=== PATIENT | female | born 1980 | race Caucasian/White ===

== ENCOUNTER 2018-09-29 15:33 | Outpatient (CLI) | payer OTHER | END 2018-09-29 15:34 | disposition home or self-care (01) | LOC: LAB 15:33 | PROVIDERS: ATTEND Internal Medicine | DX: R76.11 Nonspecific reaction to tuberculin skin test without active tuberculosis (principal) | CPT/HCPCS: 36415; 81599; 86480 ==

== ENCOUNTER 2019-02-23 15:57 | Outpatient (CLI) | payer OTHER ==
[2019-02-23 15:40] LABS: EOSINOPHILS # (AUTO) 0.2 10^3/uL (0.0-0.7); EOSINOPHILS % (AUTO) 4.1 %; HGB - HEMOGLOBIN 13.3 g/dL (12.0-16.0); LYMPHOCYTES # (AUTO) 1.1 10^3/uL (1.5-3.5); LYMPHOCYTES % (AUTO) 27.5 %; MEAN CORPUSCULAR HEMOGLOBIN 31.5 pg (27.0-31.0); MEAN CORPUSCULAR HGB CONC 33.1 g/dL (32.0-36.0); MEAN CORPUSCULAR VOLUME 95.3 fL (81.0-99.0); MEAN PLATELET VOLUME 9.9 fL (7.9-10.8); MONOCYTES # (AUTO) 0.4 10^3/uL (0.0-1.0); MONOCYTES % (AUTO) 8.8 %; NEUTROPHILS # (AUTO) 2.4 10^3/uL (1.5-6.6); NEUTROPHILS % (AUTO) 58.6 %; PLT - PLATELET COUNT 202 10^3/uL (130-450); RED BLOOD COUNT 4.22 10^6/uL (4.20-5.40); RED CELL DISTRIBUTION WIDTH 12.7 % (12.0-15.0); WHITE BLOOD COUNT 4.1 x10^3/uL (4.8-10.8)
[2019-02-23 15:48] LABS: CALCIUM 9.3 mg/dL (8.5-10.3); CREATININE 0.8 mg/dL (0.4-1.0)
[2019-02-23] MEDS ORDERED: IOVERSOL 320 50 ML VIAL ONE (16:06)
[2019-02-23] MEDS ORDERED: IOVERSOL 320 100 ML VIAL IVP ONE ×2 (16:07→17:01)
[2019-02-23] MEDS ORDERED: IOVERSOL 320 50 ML VIAL PO ONE (17:01)
--- NOTE | 2019-02-23 17:51 | CT Report ---
Reason: RLQ PAIN Procedure Date: 02/23/2019 Accession Number: [id number] / [id number] Procedure: CT - Abdomen/Pelvis W CPT Code: FULL RESULT: EXAM: CT ABDOMEN AND PELVIS EXAM DATE: 02/23/2019 05:11 PM. CLINICAL HISTORY: RLQ PAIN. COMPARISONS: None. TECHNIQUE: Routine helical CT imaging was performed through the abdomen and pelvis. IV contrast: 90 cc Optiray 320. Enteric contrast: No. Reconstructions: Coronal and sagittal. In accordance with CT protocol optimization, one or more of the following dose reduction techniques were utilized for this exam: automated exposure control, adjustment of mA and/or KV based on patient size, or use of iterative reconstructive technique. FINDINGS: ABDOMEN: Lung Bases: Incompletely included lower lungs are grossly clear. Heart size is within normal limits. No basilar effusions. Liver: Unremarkable. Spleen: Unremarkable. Pancreas: Unremarkable. Gallbladder/Bile Ducts: Gallbladder is unremarkable. Biliary tree is normal caliber. Adrenal Glands: Unremarkable. Kidneys: No mass, calculi, or hydronephrosis. Peritoneum/Mesentery/Bowel: No free fluid, free air, or collection. No intestinal obstruction or inflammation. Appendix not definitively identified. No evidence for appendicitis. Lymph nodes: No mesenteric, periportal, or retroperitoneal lymphadenopathy. Vasculature: Abdominal aorta is nonaneurysmal. Portal vein is patent. Hepatic veins are patent. PELVIS: The bladder is unremarkable for the degree of distention. Uterus is present. No obvious abnormally enlarged adnexal abnormalities. No pelvic lymphadenopathy. Bones: No suspicious osseous lesions. IMPRESSION: No acute abnormalities. [facility] The call report notification system was initiated by Dr. Yash Mercado at 05:49 PM on 02/23/2019.
== END 2019-02-23 15:58 | disposition home or self-care (01) ==
LOC: DI 15:57
PROVIDERS: ATTEND Surgery
DX: R10.31 Right lower quadrant pain (principal)
CPT/HCPCS: 36415; 74177; 80048; 85025; Q9967

== ENCOUNTER 2019-09-10 14:21 | Outpatient (CLI) | payer OTHER | END 2019-09-10 14:22 | disposition home or self-care (01) | LOC: LAB 14:21 | PROVIDERS: ATTEND Internal Medicine | DX: R76.11 Nonspecific reaction to tuberculin skin test without active tuberculosis (principal) | CPT/HCPCS: 36415; 81599; 86480 ==

== ENCOUNTER 2021-08-03 08:00 | Outpatient (CLI) | payer OTHER ==
[2021-08-03 15:58] LABS: BILIRUBIN,URINE NEGATIVE (NEGATIVE); GLUCOSE, URINE (UA) NEGATIVE (NEGATIVE); KETONES,URINE (UA) NEGATIVE (NEGATIVE); LEUKOCYTE ESTERASE, URINE NEGATIVE (NEGATIVE); NITRITE,URINE NEGATIVE (NEGATIVE); OCCULT BLOOD,URINE NEGATIVE (NEGATIVE); PH,URINE 6.5 PH (5.0-7.5); PROTEIN,URINE NEGATIVE (NEGATIVE); UROBILINOGEN,URINE 0.2 (NORMAL) E.U./dL (NORMAL)
[2021-08-03 16:05] LABS: CLARITY,URINE CLEAR (CLEAR)
== END 2021-08-03 23:59 | disposition home or self-care (01) ==
LOC: LAB 08:00
PROVIDERS: ATTEND Internal Medicine
DX: R39.9 Unspecified symptoms and signs involving the genitourinary system (principal)
CPT/HCPCS: 81001; 81003; 87086

== ENCOUNTER 2021-10-03 14:36 | Outpatient (CLI) | payer OTHER ==
--- NOTE | 2021-10-03 15:44 | Ultrasound Report ---
PROCEDURE: Abdomen Limited INDICATIONS: RUQ PAIN TECHNIQUE: Real-time focused scanning was performed of the abdomen, with image documentation. COMPARISON: 02/23/2019 CT abdomen and pelvis FINDINGS: Normal size of the liver. Normal hepatic parenchymal echogenicity and echotexture. No foca l hepatic mass. No intrahepatic or extrahepatic biliary ductal dilatation. The common duct measures a pproximately 3 mm at the melo hepatis. Normally distended gallbladder with no wall thickening or per icholecystic fluid. No sludge or gallstones demonstrated. Visualized portions of the pancreas are nor mal. Right kidney unremarkable. IMPRESSION: Normal right upper quadrant abdominal ultrasound. Reviewed by: Heriberto Reyes MD on 10/03/2021 3:43 PM PST Approved by: Heriberto Reyes MD on 10/03/2021 3:43 PM PST Station ID: [id number]
== END 2021-10-03 14:37 | disposition home or self-care (01) ==
LOC: DI 14:36
PROVIDERS: ATTEND Internal Medicine
DX: R10.11 Right upper quadrant pain (principal)

== ENCOUNTER 2022-04-30 08:00 | Outpatient (CLI) | payer BC | END 2022-04-30 23:59 | disposition home or self-care (01) | LOC: LAB.R 08:00 | PROVIDERS: ATTEND Internal Medicine | DX: Z22.7 Latent tuberculosis (principal) | CPT/HCPCS: 81599; 86480 ==

== ENCOUNTER 2022-11-21 06:39 | Day surgery (SDC) | payer OTHER ==
[2022-11-21] MEDS ORDERED: LACTATED RINGERS 1,000 ML IV ONE ×2 (06:48→08:29)
[2022-11-21 07:04] LABS: HCG UR QUAL NEGATIVE
[2022-11-21] MEDS ORDERED: PROPOFOL 500 MG/50 ML 500 MG/50 ML VIAL ONE (07:16)
--- NOTE | 2022-11-21 07:22 | ANESTHESIA ---
Pre-Anesthesia VS, & Labs - Diagnosis screening exam - Procedure colonoscopy Vital Signs: Temp Pulse Resp BP Pulse Ox O2 Flow Rate 36 C L 57 L 16 132/92 H 99 11/21/22 06:51 11/21/22 06:51 11/21/22 06:51 11/21/22 06:51 11/21/22 06:51 Height: 5 ft 4 in Weight (kg): 56 kg Body Mass Index: 21.2 BMI Classification: Normal - NPO >8 hours - Is Patient ?: No Home Medications and Allergies Home Medications: Ambulatory Orders No Known Home Medications 11/20/22 No Known Home Medications 11/20/22 Allergies/Adverse Reactions: Allergies Allergy/AdvReac Type Severity Reaction Status Date / Time isoniazid Allergy Unknown Verified 11/21/22 07:05 Anes History & Medical History - Anesthetic History Anesthesia Complications: reports: No previous complications - Medical History Cardiovascular: reports: None Pulmonary: reports: None Gastrointestinal: reports: None Urinary: reports: None Neuro: reports: None Musculoskeletal: reports: None Endocrine/Autoimmune: reports: None Blood Disorders: reports: None Skin: reports: None Smoking Status: Never smoker Psychosocial: reports: No issues indicated - Surgical History General: reports: Colonoscopy Exam General: Alert, Oriented x3, Cooperative, No acute distress Dental: WNL Mouth Openin Fingerbreadth Neck Mobility: Normal Mallampati classification: I Thyromental Distance: 4-6 cm Mental/Cognitive Status: Alert/Oriented X3, Normal for patient Plan Anesthesia Type: General, Total IV Consent for Procedure(s) Verified and Reviewed: Yes Code Status: Attempt Resuscitation ASA classification: 1-Healthy patient Is this case an emergency?: No
[2022-11-21] MEDS ORDERED: GLYCOPYRROLATE 1 MG/5 ML VIAL ONE (08:10)
[2022-11-21 08:33] VITALS: BP 114/71
--- NOTE | 2022-11-21 16:25 | ANESTHESIA POST OP EVALUATION ---
Anesthesia Post Eval - Post Anesthesia Eval Vitals: Last Vital Signs Temp 36 C L 11/21/22 08:32 Pulse 60 11/21/22 08:32 Resp 16 11/21/22 08:32 BP 114/71 11/21/22 08:32 Pulse Ox 99 11/21/22 08:32 O2 Flow Rate CV Function Including HR & BP: Stable Pain Control: Satisfactory Nausea & Vomiting: Negative Mental Status: Baseline Respiratory Status: Airway Patent Hydration Status: Satisfactory Anesthesia Complications: None
== END 2022-11-21 06:40 | disposition home or self-care (01) ==
LOC: SDS 06:39
PROVIDERS: ATTEND Surgery
DX: Z12.11 Encounter for screening for malignant neoplasm of colon (principal); K64.8 Other hemorrhoids; Z86.010 Personal history of colon polyps
CPT/HCPCS: 45378; 81025; J7120

== ENCOUNTER 2023-05-16 13:42 | Outpatient (CLI) | payer OTHER ==
--- NOTE | 2023-05-17 11:43 | Mammography Report ---
BILATERAL DIGITAL SCREENING MAMMOGRAM 3D/2D: 05/16/2023 CLINICAL: Baseline exam. Routine screening. No prior exams were available for comparison. Both breasts are heterogeneously dense, which may obscure small masses (category c / 51-75% glandular tissue). No significant masses, calcifications, or other findings are seen in either breast. IMPRESSION: NEGATIVE There is no mammographic evidence of malignancy. A 1 year screening mammogram is recommended. Based on the Tyrer Cuzick model (a risk assessment model) the patients lifetime risk is 15.3% and he r 10 year risk is 2.1%. According to the ACR, ACS, and NCCN guidelines, an annual breast MRI exam michelle ng with mammogram is recommended if the patients lifetime risk is 20% or greater. This exam was interpreted at Station ID: [id number]. NOTE: For mammograms, a report in lay terms will be sent to the patient. Approximately 15% of breast malignancies will not be visualized mammographically. In the management of a palpable breast mass, a negative mammogram must not discourage biopsy of a clinically suspicious lesion. Electronically Signed By: Sebastian Harp M.D. acr/penrad:05/16/2023 16:10:59 letter sent: No_Letter ACR BI-RADS Category 1: Negative 3341F PARENCHYMAL PATTERN: (D) - The breast(s) demonstrate(s) heterogeneously dense fibroglandular parsaritay thelma. BI-RADS CATEGORY: (1) - 1 Mammogram [id number] 1 year screening LATERALITY: (B)
== END 2023-05-16 13:43 | disposition home or self-care (01) ==
LOC: DI 13:42
PROVIDERS: ATTEND Internal Medicine
DX: Z12.31 Encounter for screening mammogram for malignant neoplasm of breast (principal)